=== PATIENT | male | born 1945 | race Hispanic/Latino ===

== ENCOUNTER → 2018-06-22 | Outpatient (CLI) | payer MEDICARE | END | disposition home or self-care (01) | LOC: SLP 20:06 | DX: G47.30 Sleep apnea, unspecified (principal) | CPT/HCPCS: 95810 ==

== ENCOUNTER → 2018-07-06 | Outpatient (CLI) | payer MEDICARE | END | disposition home or self-care (01) | LOC: SLP 19:50 | DX: G47.30 Sleep apnea, unspecified (principal); I10 Essential (primary) hypertension; E11.9 Type 2 diabetes mellitus without complications; Z95.1 Presence of aortocoronary bypass graft | CPT/HCPCS: 95811 ==

== ENCOUNTER 2019-02-05 12:00 | Observation (INO) | payer MEDICARE ==
[~2019-02-05] VITALS: Ht 165.1 cm; Wt 99.8 kg
[2019-02-05 12:17] LABS: BASOPHILS % (AUTO) 0.8 % (0.0-5.0); HEMATOCRIT 33.9 % (42-54); LYMPHOCYTES % (AUTO) 19.3 % (21.0-51.0); MEAN CORPUSCULAR HEMOGLOBIN 31.2 pg (27.0-33.0); MEAN CORPUSCULAR VOLUME 91.8 fL (79-99); MONOCYTES % (AUTO) 6.7 % (3.0-13.0); NEUTROPHILS % (AUTO) 72.2 % (40.0-77.0); PLATELET COUNT (AUTO) 194 K/uL (130-400); RED BLOOD CELL COUNT(AUTO) 3.69 MIL/uL (4.50-6.20); RED CELL DISTRIBUTION WIDTH 14.2 % (11.0-15.5); WHITE BLOOD COUNT (AUTO) 7.1 K/uL (4.8-10.8)
[2019-02-05 12:24] LABS: CREATININE 1.2 mg/dL (0.5-1.5); POTASSIUM 4.4 mmol/L (3.5-5.1)
[2019-02-05 12:29] VITALS: BP 155/76
[2019-02-05] MEDS ORDERED: GLIP10TA9 PO (12:58)
[2019-02-05] MEDS ORDERED: ATOR-2 PO (12:58)
[2019-02-05] MEDS ORDERED: HYDR12.54 PO (12:58)
[2019-02-05] MEDS ORDERED: SAXA5TAB PO (12:58)
[2019-02-05] MEDS ORDERED: CYCL30DR OU (12:58)
[2019-02-05] MEDS ORDERED: PANT40TA25 PO (12:58)
[2019-02-05] MEDS ORDERED: BUSP10TA3 PO (12:58)
[2019-02-05] MEDS ORDERED: METO25TA6 PO (12:58)
[2019-02-05] MEDS ORDERED: LATA7.5D OU (12:58)
[2019-02-05] MEDS ORDERED: LOSA100T58 PO (12:58)
[2019-02-05] MEDS ORDERED: PIOG45TA64 PO (12:58)
[2019-02-05] MEDS ORDERED: METF-446 PO (12:58)
[2019-02-05] MEDS ORDERED: AMLO10TA7 PO (12:58)
[2019-02-05] MEDS ORDERED: MONT10TA24 PO (12:58)
[2019-02-09] VITALS (17 sets, daily range): BP systolic 107–148; BP diastolic 42–101
[2019-02-09] MEDS ORDERED: CEFAZOLIN SODIUM 1 GM VIAL IVP SCH (05:00)
[2019-02-09] MEDS ORDERED: DURAMORPH PF1 MG/ML 10ML AMP IV ONE (06:46)
[2019-02-09] MEDS ORDERED: BUPIVACAINE/EPI/PF 0.25% 30ML VIAL IJ ONE (06:46)
[2019-02-09] MEDS ORDERED: BACITRACIN 50,000 UNIT VIAL ONE (06:46)
[2019-02-09] MEDS ORDERED: THROMBIN-JMI 20000 UNIT KIT TP ONE (06:47)
[2019-02-09] MEDS ORDERED: LACTATED RINGERS 1000ML 1,000 ML IV ONE (06:49)
[2019-02-09] MEDS ORDERED: GLYCOPYRROLATE 1 MG/5 ML SYRINGE ONE (06:57)
[2019-02-09] MEDS ORDERED: MIDAZOLAM HCL 1 MG/ML 2ML VIAL ONE (06:57)
[2019-02-09] MEDS ORDERED: LIDOCAINE PF 2% 5ML ABBOJECT ONE (06:57)
[2019-02-09] MEDS ORDERED: SUCCINYLCHOLINE 200MG/10ML SYR ONE (06:57)
[2019-02-09] MEDS ORDERED: DEXAMETHASONE SOD PHOSPHATE 10MG/ML 1ML VIAL ONE (06:57)
[2019-02-09] MEDS ORDERED: PROPOFOL 10 MG/ML 20ML VIAL IV ONE (06:58)
[2019-02-09] MEDS ORDERED: ROCURONIUM 10MG/1ML SYR 10 MG/ML ML ONE (06:58)
[2019-02-09] MEDS ORDERED: NEOSTIGMINE 5MG/5ML SYR IV ONE (06:58)
[2019-02-09] MEDS ORDERED: ONDANSETRON HCL 4 MG/2 ML VIAL ONE (06:58)
[2019-02-09] MEDS ORDERED: FENTANYL CITRATE PF 50 MCG/1 ML 2ML VIAL ONE ×4 (06:58→12:50)
[2019-02-09] MEDS ORDERED: ARTIFICIAL TEARS 3.5 GM OINTMENT ONE (07:03)
[2019-02-09] MEDS ORDERED: LIDOCAINE HCL 4% LTA SOL 4 ML VIAL ONE (07:03)
[2019-02-09] MEDS ORDERED: EPHEDRINE SULFATE 50 MG/ML AMPULE ONE (07:55)
[2019-02-09] MEDS: LACTATED RINGERS 1000ML 1,000 ML IV SCH (11:33)
[2019-02-09] MEDS ORDERED: PROMETHAZINE HCL 25 MG/ML 1ML AMPULE IM PRN (11:45)
[2019-02-09] MEDS ORDERED: SODIUM CHLORIDE 0.9% 10 ML VIAL IVP PRN (11:45)
[2019-02-09] MEDS ORDERED: MORPHINE SULFATE 2 MG/ML 1ML SYG IVP PRN (11:45)
[2019-02-09] MEDS: DEXAMETHASONE SOD PHOSPHATE 4 MG/ML 1ML VIAL IVP SCH ×3 (11:45→23:42)
[2019-02-09] MEDS: CEFAZOLIN SODIUM 1 GM VIAL IVP SCH ×2 (11:45→16:54)
--- NOTE | 2019-02-09 13:40 | NUR ---
REPORT S/P REPORT RECEIVED FROM [facility] AT [address] RO S/P l1-4 DECOMPRESSION , JNAAY DRAIN DUE TO COMPRESS AT 1623 CHU CATHETER 16 [place] PLACED BY DR PRITCHARD POST -OP, 20G IV L/H INFUSING B/P 114/45 P75 T 97.4 O2 SATS 96% ON ROOM AIR RECEIVED [id number] AT 134 AND 1257 , LAST BLOOD SUGAR AT 1300 242. TRANSFERRED TO BED SIDE RAILS UP X 2 SCD'S APPLIED . FAMILY AT BEDSIDE WILL CONTINUE TO MONITOR
[2019-02-09] MEDS: METFORMIN HCL 500 MG TABLET PO SCH (16:45)
[2019-02-09] MEDS: INSULIN HUMULIN R 100 UNIT/ML 3ML SQ SCH ×2 (16:47→21:21)
[2019-02-09] MEDS: AMLODIPINE BESYLATE 5 MG TAB PO SCH (19:38)
[2019-02-09] MEDS: BUSPIRONE HCL 5 MG TABLET PO SCH (19:39)
[2019-02-09] MEDS: METOPROLOL TARTRATE 25 MG TAB PO SCH (19:39)
[2019-02-09] MEDS: GLIPIZIDE 5 MG TABLET PO SCH (19:39)
[2019-02-09] MEDS: RESTASIS OPTHL OU SCH (19:43)
[2019-02-09] MEDS: HYDROCODONE/ACETAMINOPHEN 5/325 MG TAB PO PRN ×2 (19:54→23:42)
[2019-02-09] MEDS ORDERED: ATORVASTATIN CALCIUM 40 MG TABLET PO SCH (21:00)
[2019-02-09] MEDS ORDERED: LATANOPROST 2.5 ML DROPS OU SCH (21:00)
[2019-02-10] VITALS: BP 119/57
[2019-02-10] MEDS: LACTATED RINGERS 1000ML 1,000 ML IV SCH (00:53)
[2019-02-10] MEDS: CEFAZOLIN SODIUM 1 GM VIAL IVP SCH (03:45)
[2019-02-10 04:00] VITALS: BP 134/60
[2019-02-10] MEDS: DEXAMETHASONE SOD PHOSPHATE 4 MG/ML 1ML VIAL IVP SCH (05:40)
[2019-02-10] MEDS: INSULIN HUMULIN R 100 UNIT/ML 3ML SQ SCH (06:24)
[2019-02-10 07:57] VITALS: BP 144/76
[2019-02-10] MEDS: HYDROCODONE/ACETAMINOPHEN 5/325 MG TAB PO PRN (08:24)
--- NOTE | 2019-02-10 08:24 | NUR ---
patient reports back pain with score of 5 . Informed patient of discharge order and if given pain medication would have to monitor for 2 hour post medication patient agrees and pain medication given.
[2019-02-10] MEDS: METFORMIN HCL 500 MG TABLET PO SCH (08:25)
[2019-02-10] MEDS: METOPROLOL TARTRATE 25 MG TAB PO SCH (08:26)
[2019-02-10] MEDS: BUSPIRONE HCL 5 MG TABLET PO SCH (08:26)
[2019-02-10] MEDS: AMLODIPINE BESYLATE 5 MG TAB PO SCH (08:26)
[2019-02-10] MEDS: GLIPIZIDE 5 MG TABLET PO SCH (08:28)
[2019-02-10] MEDS: RESTASIS OPTHL OU SCH (08:28)
[2019-02-10] MEDS ORDERED: PIOGLITAZONE HCL 45 MG TAB PO SCH (09:00)
[2019-02-10] MEDS ORDERED: MONTELUKAST SODIUM 10 MG TAB PO SCH (09:00)
[2019-02-10] MEDS ORDERED: LOSARTAN 100 MG TABLET PO SCH (09:00)
[2019-02-10] MEDS ORDERED: ONGLYZA 5 MG PO SCH (09:00)
[2019-02-10] MEDS ORDERED: HYDROCHLOROTHIAZIDE 25 MG TABLET PO SCH (09:00)
[2019-02-10] MEDS ORDERED: PANTOPRAZOLE SODIUM 40 MG TABLET.DR PO SCH (09:00)
--- NOTE | 2019-02-10 10:15 | NUR ---
DRESSING CHANGE PERFORMED LOWER BACK INCISION DRESSING CHANGE. LOWER BACK INCISION APPROXIMATED AND ASYMPTOMATIC, 20 STEVEN INTACT, MINIMAL SANGUINOUS DRAINAGE NOTED. CLEANSED LOWER BACK INCISION WITH BETADINE, COVERED WITH 4X4 GAUZE, SECURED WITH MEDIPORE TAPE. REMOVED LOWER BACK JANAY DRAIN, NO RESISTANCE NOTED UPON JANAY DRAIN REMOVAL. JANAY DRAIN CATHETER INTACT. COVERED WITH 4X4 GAUZE AND BANDAID. PATIENT TOLERATED DRESSING CHANGE WELL. REMOVED 20G IV FROM LEFT HAND. CATHETER TIP INTACT.
--- NOTE | 2019-02-10 10:30 | NUR ---
DISCHARGE DISCHARGE TEACHING PROVIDED TO PATIENT AND HIS . PROVIDED DISCHARGE TEACHING TO PATIENT REGARDING RX (TORADOL), SCHEDULED F/U APPT, REVIEWED DR. RO DISCHARGE ORDER SHEET, [facility]U CATHETER CARE AT HOME. INFORMED OF SCHEDULED F/U WITH APPOINTMENTS WITH DR. RO AND DR. PRITCHARD. PROVIDED STAPLE REMOVAL KIT AND INFORMED TO TAKE TO F/U WITH DR. RO. PATIENT VERBALIZED UNDERSTANDING OF DISCHARGE TEACHING. PATIENT TO BE DRIVEN HOME BY HIS . PATIENT DISCHARGE WITH 16FR CHU CATHETER IN PLACE AND SECURED TO RIGHT THIGH.
== END 2019-02-10 11:19 | disposition home or self-care (01) ==
LOC: EDSTATUS 12:00 → DAHIP 02-09 05:36 → 4AH 02-09 11:41
PROVIDERS: ADMIT Neurological Surgery; ATTEND Neurological Surgery
DX: M48.061 Spinal stenosis, lumbar region without neurogenic claudication (principal); I10 Essential (primary) hypertension; E78.5 Hyperlipidemia, unspecified; E11.9 Type 2 diabetes mellitus without complications; Z90.49 Acquired absence of other specified parts of digestive tract; Z95.1 Presence of aortocoronary bypass graft; Z96.651 Presence of right artificial knee joint; Z79.84 Long term (current) use of oral hypoglycemic drugs; Z79.01 Long term (current) use of anticoagulants; Z79.899 Other long term (current) drug therapy
CPT/HCPCS: 36415; 63047; 63048 ×3; 72020; 80048; 82948 ×5; 85025; 96372; 96374; 96375; 96376 ×2; A4215; A4216; A4221; A4222; A4223; A4344; A4649 ×4; A4663; A6260; C1758; C1769; G0378 ×22; J0330; J0690 ×2; J1100 ×4; J1815 ×2; J2001; J2250; J2274; J2405; J2704; J2710; J3010 ×4; J3490 ×3; J7030; J7120 ×2

== ENCOUNTER → 2021-08-08 | Outpatient (CLI) | payer OTHER, MEDICARE ==
[~2021-08-08] MED LIST: AMLO-258 PO; ATOR-2 PO; BUSP10TA3 PO; CYCL30DR OU; GLIP10TA9 PO; HYDR12.54 PO; LATA7.5D OU; LOSA100T58 PO; METF-446 PO; METO25TA6 PO; MONT-39 PO; PANT40TA54 PO; PIOG45TA64 PO; SAXA5TAB PO
== END | disposition home or self-care (01) ==
LOC: SHCH 07:38
PROVIDERS: ATTEND Internal Medicine Cardiovascular Disease
DX: I11.0 Hypertensive heart disease with heart failure (principal); I50.9 Heart failure, unspecified; I36.1 Nonrheumatic tricuspid (valve) insufficiency; I25.10 Atherosclerotic heart disease of native coronary artery without angina pectoris
CPT/HCPCS: 93306

== ENCOUNTER → 2023-10-13 | Outpatient (CLI) | payer OTHER, MEDICARE ==
[~2023-10-13] MED LIST changes: -LOSA100T58 PO; +LOSA100T59 PO
[2023-10-13 16:33] LABS: HEMOGLOBIN A1C 7.6 % (4.0-6.0)
[2023-10-13 16:38] LABS: CHOLESTEROL 102 mg/dL (<200); HDL CHOLESTEROL 44 mg/dL (29-71); LDL DIRECT 50 mg/dL (0-99); TRIGLYCERIDES 79 mg/dL (30-200)
== END | disposition home or self-care (01) ==
LOC: LAB 12:45
PROVIDERS: ATTEND Internal Medicine Cardiovascular Disease
DX: E78.2 Mixed hyperlipidemia (principal); I10 Essential (primary) hypertension; Z79.899 Other long term (current) drug therapy
CPT/HCPCS: 36415; 80061; 83036